=== PATIENT | male | born 1970 | race Asian ===

== ENCOUNTER 2017-03-18 09:16 | Inpatient (IN) | payer BC ==
[~2017-03-18] VITALS: Ht 175.3 cm; Wt 59.0 kg
[2017-03-18 11:47] LABS: microscopic required? NO
[2017-03-18 11:59] LABS: BASOPHIL % 0.1 % (0-2); PLATELET COUNT 221 x10^3mcL (130-400); RED CELL DISTRIBUTION WIDTH 12.7 % (11.5-14.5)
[2017-03-18 12:02] LABS: UA SPECIFIC GRAVITY 1.015 (1.005-1.035); urine erythrocyte NEGATIVE (NEGATIVE)
[2017-03-18 12:07] LABS: CALCIUM 8.9 mg/dL (8.5-10.1); CARBON DIOXIDE 29.7 mmol/L (21-32); CHLORIDE SERUM 104 mmol/L (98-107); CREATININE SERUM 0.8 mg/dL (0.7-1.3); GFR1 > 60 mL/min; GLUCOSE SERUM 106 mg/dL (74-106); POTASSIUM SERUM 3.7 mmol/L (3.5-5.1); SODIUM SERUM 139 mmol/L (136-145)
[2017-03-18 12:11] LABS: ALKALINE PHOSPHATASE 114 U/L (46-116); ALT/SGPT 61 U/L (16-63); AMYLASE 71 U/L (25-115); AST/SGOT 35 U/L (15-37); BILIRUBIN TOTAL 1.12 mg/dL (0.20-1.00); LIPASE 104 IU/L (73-393); TOTAL PROTEIN, SERUM 7.3 g/dL (6.4-8.2)
[2017-03-18 15:15] VITALS: BP 100/70
[2017-03-18 15:46] LABS: CHOLESTEROL/HDL RATIO 3.5; MAGNESIUM 2.3 mg/dL (1.8-2.4); PHOSPHOROUS 3.3 mg/dL (2.5-4.9)
[2017-03-18 16:09] LABS: T3 TOTAL 0.96 ng/mL
[2017-03-18 17:36] LABS: AMPHETAMINE QUAL UR NONE DETECTED (NEG <=1000)
[2017-03-18 18:25] VITALS: BP 90/63
[2017-03-18 19:17] LABS: FREE T4 0.92 ng/dL (0.76-1.46); FREE THYROXINE INDEX 2.4 ug/dL (1.4-4.5); T4(THYROXINE) 7.2 ug/dL (4.7-13.3)
[2017-03-18 21:14] VITALS: BP 105/75
[2017-03-19 05:56] VITALS: BP 93/62
[2017-03-19 07:43] LABS: BASOPHIL % 0.3 % (0-2); PLATELET COUNT 174 x10^3mcL (130-400); RED CELL DISTRIBUTION WIDTH 12.6 % (11.5-14.5)
[2017-03-19 08:22] LABS: ALKALINE PHOSPHATASE 91 U/L (46-116); ALT/SGPT 51 U/L (16-63); AST/SGOT 21 U/L (15-37); BILIRUBIN TOTAL 0.5 mg/dL (0.20-1.00); CALCIUM 7.9 mg/dL (8.5-10.1); CARBON DIOXIDE 24.4 mmol/L (21-32); CHLORIDE SERUM 108 mmol/L (98-107); CREATININE SERUM 0.7 mg/dL (0.7-1.3); GFR1 > 60 mL/min; GLUCOSE SERUM 88 mg/dL (74-106); MAGNESIUM 2.3 mg/dL (1.8-2.4); PHOSPHOROUS 3.7 mg/dL (2.5-4.9); POTASSIUM SERUM 3.7 mmol/L (3.5-5.1); SODIUM SERUM 142 mmol/L (136-145)
[2017-03-19 08:31] LABS: ALBUMIN 3.1 g/dL (3.4-5.0)
[2017-03-19 10:09] VITALS: BP 101/69
[2017-03-19 12:41] VITALS: BP 97/68
[2017-03-19 16:53] VITALS: BP 112/81
[2017-03-19 20:55] VITALS: BP 101/65
[2017-03-20 06:05] VITALS: BP 94/64
[2017-03-20 07:13] LABS: CALCIUM 8.6 mg/dL (8.5-10.1); CARBON DIOXIDE 25.2 mmol/L (21-32); CHLORIDE SERUM 107 mmol/L (98-107); CREATININE SERUM 0.8 mg/dL (0.7-1.3); GFR1 > 60 mL/min; GLUCOSE SERUM 88 mg/dL (74-106); MAGNESIUM 2.3 mg/dL (1.8-2.4); PHOSPHOROUS 4.3 mg/dL (2.5-4.9); POTASSIUM SERUM 3.8 mmol/L (3.5-5.1); SODIUM SERUM 140 mmol/L (136-145)
[2017-03-20 07:14] LABS: PLATELET COUNT 190 x10^3mcL (130-400)
[2017-03-20 07:15] LABS: BASOPHIL % 4.8 % (0-2); RED CELL DISTRIBUTION WIDTH 11.4 % (11.5-14.5)
[2017-03-20 08:43] VITALS: BP 94/64
[2017-03-20 09:16] VITALS: BP 111/72
[2017-03-20] MEDS ORDERED: ELA10 PO ×2 (12:22→12:35)
[2017-03-20] MEDS ORDERED: AMITIZA24 MC1 PO ×2 (12:23→12:35)
[2017-03-20] MEDS ORDERED: COL100 PO ×2 (12:23→12:35)
== END 2017-03-20 14:45 | disposition home or self-care (01) | DRG 392 ==
LOC: ED 09:16 → MU 13:35 → DU 13:35 → MU 03-19 07:55
PROVIDERS: Emergency Medicine; Family Medicine
DX: K59.00 Constipation, unspecified (principal); Z68.1 Body mass index [BMI] 19.9 or less, adult; E44.0 Moderate protein-calorie malnutrition; E80.6 Other disorders of bilirubin metabolism; F17.210 Nicotine dependence, cigarettes, uncomplicated; E87.8 Other disorders of electrolyte and fluid balance, not elsewhere classified; D72.819 Decreased white blood cell count, unspecified
CPT/HCPCS: 83880; 84439; J2405; J3010; J7030; Q0092; Q9967